=== PATIENT | male | born 1960 | race Caucasian/White ===

== ENCOUNTER 2018-11-28 09:53 | Emergency (ER) | payer OTHER, BC ==
--- NOTE | 2018-11-28 11:52 | EDM.PDOC ---
ED HPI GENERAL MEDICAL PROBLEM - General Chief Complaint: Upper Extremity Injury/Pain Stated Complaint: INJURY TO SHOULDER Time Seen by Provider: 11/28/18 10:45 Source of Information: Reports: Patient History Limitations: Reports: No Limitations - History of Present Illness INITIAL COMMENTS - FREE TEXT/NARRATIVE: Presents reporting right shoulder pain after a fall this morning. He states he slipped on the ice and fell to the ground striking his right shoulder since that time he has had pain exacerbated by movement. Denies loss of consciousness hitting his head or any other injuries or pain. right shoulder Pain Score (Numeric/FACES): 8 - Related Data Allergies Allergy/AdvReac Type Severity Reaction Status Date / Time No Known Allergies Allergy Verified 11/28/18 10:09 Home Meds: Home Meds metFORMIN [Glucophage] 1 tab PO BIDMEALS 08/20/16 [History] Cyclobenzaprine [Flexeril] 1 tab PO TID PRN #20 tab 11/28/18 [Rx] Diclofenac Sodium [Voltaren] 1 tab PO BIDMEALS #20 tab.cr 11/28/18 [Rx] Past Medical History HEENT History: Reports: None Cardiovascular History: Reports: None Respiratory History: Reports: None Gastrointestinal History: Reports: Other (See Below) Other Gastrointestinal History: Occasional Heartburn Genitourinary History: Reports: None Musculoskeletal History: Reports: Fracture, Other (See Below) Other Musculoskeletal History: Left shoulder pain, left rotator cuff tear, Impingement syndrome Left shoulder. hx: fracturing toe Neurological History: Reports: None Psychiatric History: Reports: None Endocrine/Metabolic History: Reports: Diabetes, Type II, Obesity/BMI 30+ Hematologic History: Reports: None Immunologic History: Reports: None Oncologic (Cancer) History: Reports: None Dermatologic History: Reports: Other (See Below) Other Dermatologic History: 'dry skin' - Infectious Disease History Infectious Disease History: Reports: Chicken Pox - Past Surgical History Head Surgeries/Procedures: Reports: None HEENT Surgical History: Reports: None Cardiovascular Surgical History: Reports: None Respiratory Surgical History: Reports: None GI Surgical History: Reports: None Male Surgical History: Reports: None Endocrine Surgical History: Reports: None Neurological Surgical History: Reports: None Musculoskeletal Surgical History: Reports: Other (See Below) Other Musculoskeletal Surgeries/Procedures:: Rotator cuff surgery; left Oncologic Surgical History: Reports: None Dermatological Surgical History: Reports: None Social & Family History - Family History Family Medical History: Noncontributory - Tobacco Use Smoking Status *Q: Never Smoker Second Hand Smoke Exposure: No - Caffeine Use Caffeine Use: Reports: Coffee - Recreational Drug Use Recreational Drug Use: No Review of Systems - Review of Systems Review Of Systems: ROS reveals no pertinent complaints other than HPI. ED EXAM, GENERAL - Physical Exam Exam: See Below Exam Limited By: No Limitations General Appearance: Alert, No Apparent Distress Ears: Normal External Exam Nose: Normal Inspection Throat/Mouth: Normal Inspection Head: Atraumatic, Normocephalic Neck: Normal Inspection Respiratory/Chest: No Respiratory Distress, Lungs Clear, Normal Breath Sounds, No Accessory Muscle Use Cardiovascular: Normal Peripheral Pulses Extremities: Normal Inspection, Other (Range of motion right shoulder limited by pain to 90 of abduction 45 flexion no erythema, lesion, swelling, ecchymosis or deformity of the right shoulder, elbow or wrist.) Neurological: Alert, Oriented Psychiatric: Normal Affect, Normal Mood Skin Exam: Warm, Dry, Intact, Normal Color, No Rash Lymphatic: No Adenopathy Course - Vital Signs Last Recorded V/S: Last Vital Signs Temp 37.1 C 11/28/18 10:08 Pulse 79 11/28/18 10:08 Resp 18 11/28/18 10:08 BP 163/78 H 11/28/18 10:08 Pulse Ox 98 11/28/18 10:08 - Orders/Labs/Meds Orders: Active Orders 24 hr Category Date Time Status Shoulder Comp Rt [CR] Stat Exams 11/28/18 10:28 Ordered Departure - Departure Time of Disposition: 11:57 Disposition: Home, Self-Care 01 Condition: Good Clinical Impression: Internal derangement of right shoulder - Discharge Information *PRESCRIPTION DRUG MONITORING PROGRAM REVIEWED*: Not Applicable *COPY OF PRESCRIPTION DRUG MONITORING REPORT IN PATIENT [facility]: Not Applicable Referrals: Kin Harper MD [Primary Care Provider] - [facility]] Additional Instructions: 1. diclofenac 75mg twice daily for pain and inflammation 2. Flexeril 10mg three times a day for muscle relaxation, no driving or operating machinery 3. Follow-up in primary care for referral and definitive management - My Orders Last 24 Hours: My Active Orders 11/28/18 10:28 Shoulder Comp Rt [CR] Stat - Assessment/Plan Last 24 Hours: My Active Orders 11/28/18 10:28 Shoulder Comp Rt [CR] Stat
[2018-11-28] MEDS ORDERED: Ketorolac 60 MG/2 ML SDV IM ONE (11:55)
--- NOTE | 2018-11-28 11:57 | CR ---
EXAMINATION: Right shoulder HISTORY: Pain COMPARISON: None TECHNIQUE: 3 views FINDINGS/IMPRESSION: There is no acute osseous abnormality, dislocation, or fracture. Bone mineralization and joint spaces are preserved. Mild acromioclavicular osteoarthritic changes noted.
== END 2018-11-28 12:26 | disposition home or self-care (01) ==
LOC: MW.ED 09:53
DX: M24.9 Joint derangement, unspecified (principal); E11.9 Type 2 diabetes mellitus without complications; Z79.84 Long term (current) use of oral hypoglycemic drugs; W00.0XXA Fall on same level due to ice and snow, initial encounter
CPT/HCPCS: 73030; 96372; 99283; J1885